=== PATIENT | male | born 1975 | race Caucasian/White ===

== ENCOUNTER 2017-01-02 21:35 | Inpatient (IN) | payer SELFPAY ==
--- NOTE | ~2017-01-02 | DS ---
Unit #: [id number] #: [id number] Patient: SANTIAGO PARKER [id number] [facility] [address] [place] [address] [id number] I MR#: [id number] NAME: SANTIAGO PARKER ROOM: [facility] Age: 41 Sex: M Admission Date: 01/02/2017 : 1975 Discharge Date: 01/06/2017 Attending Physician: Sanford Walton M.D. Primary Care Physician: Generic Doctor Not In System DISCHARGE SUMMARY REASON FOR ADMISSION Mr. Parker is a 41-year-old man with a history of alcohol dependence for much of his adult life, who was referred by the [facility] after he requested detox and establishment of sobriety. DIAGNOSTIC STUDIES LABORATORY RESULTS: Please see hospital chart. HOSPITAL COURSE Mr. Parker was admitted and placed on the alcohol detox protocol. He had an uneventful period of alcohol detox with no hallucinations, delusions, disorientation, or episodes of delirium. He participated appropriately in unit groups and activities and participated with the unit social work case manager on followup. On the date of discharge, he established sobriety and continued to contract for safety. DISCHARGE DIAGNOSES AXIS I: Alcohol dependence with withdrawal, uncomplicated, F10.230. AXIS II: No diagnosis. AXIS III: Alcohol withdrawal, resolved; history of asthma. AXIS IV: AXIS V: DISCHARGE INSTRUCTIONS The patient followup with [facility] in [place], [place]. DISCHARGE MEDICATIONS None. CONDITION AT DISCHARGE Improved. PROGNOSIS Fair to good. DIET AND ACTIVITY Per primary care doctor. Dictated by... Sanford Walton M.D. Unit #: [id number] #: [id number] Patient: SANTIAGO PARKER MRH/modl TD: 02/15/2017 20:27 JOB #: [id number] DISCHARGE SUMMARY Page 1 of 1 X Sanford Walton MD X DISCHARGE SUMMARY
--- NOTE | ~2017-01-02 | PA ---
Unit #: [id number] #: [id number] Patient: SANTIAGO PARKER [id number] [facility] [address] [place] [address] [id number] I MR#: [id number] NAME: SANTIAGO PARKER ROOM: [facility] Age: 41 Sex: M Admission Date: 01/02/2017 : 1975 Date of Assessment: 01/03/2017 Attending Physician: Sanford Walton M.D. Admitting Physician: Sanford Walton M.D. Primary Care Physician: Generic Doctor Not In System PSYCHIATRIC ASSESSMENT DATE OF SERVICE 01/03/2017. INFORMANTS Patient, reliable; [facility], reliable. CHIEF COMPLAINT Alcohol issues. HISTORY OF PRESENT ILLNESS Mr. Parker is a 41-year-old man, who reports he has been drinking since the age of 18 and says he has been dependent for many years. 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 He was free of suicidal ideation, intent, or plan and was admitted for alcohol dependence. PAST PSYCHIATRIC HISTORY The patient reports he has been at [facility] in the past for chemical dependence. He does not take psychiatric medications. FAMILY PSYCHIATRIC HISTORY None reported. SOCIAL HISTORY The patient denied any history of childhood abuse or neglect. 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 He graduated from high school in [facility], but is currently living alone. This has caused significant financial difficulty. PAST MEDICAL HISTORY Significant for asthma and swollen ankles related to a recent fall. MEDICATIONS None currently. ALLERGIES No known medication allergies. SUBSTANCE USE HISTORY As noted above. Unit #: [id number] #: [id number] Patient: SANTIAGO PARKER MENTAL STATUS EXAMINATION Santiago presented as a mildly disheveled man, who appeared his stated age. He was cooperative with the examination. His speech was spontaneous and easily understood. Musculoskeletal examination demonstrated mild psychomotor tremulousness. His mood was anxious with a congruent affect. He was alert and fully oriented. His memory and concentration were fair to good. His thought processes were goal directed with no active psychosis. He denied suicidal ideation, intent, or plan. Insight and judgment were fair. Fund of knowledge and abstraction were fair. ASSETS AND LIABILITIES The patient is familiar with local resources, has supportive family and is employable. Liabilities include difficulty maintaining and establishing sobriety. ADMITTING DIAGNOSES AXIS I: Alcohol dependence with withdrawal, uncomplicated, F10.230. AXIS II: No diagnosis. AXIS III: Alcohol withdrawal syndrome, history of asthma. AXIS IV: AXIS V: PSYCHIATRIC PLAN The patient was admitted and placed on the alcohol detox protocol. He will enroll in dual diagnosis groups and activities. A physical examination will be conducted. TREATMENT GOALS Establishment of sobriety, improvement in insight, and improvement in coping skills. DISCHARGE PLANNING Follow up with [facility] and chemical dependence treatment program of the patient's choice. ESTIMATED LENGTH OF STAY 5 days. Dictated by... Sanford Walton M.D. RED/suzanne TD: 02/15/2017 23:06 JOB #: [id number] Unit #: [id number] #: [id number] Patient: SANTIAGO PARKER PSYCHIATRIC ASSESSMENT Page 1 of 1 X Sanford Walton MD X PSYCHIATRIC ASSESSMENT
--- NOTE | ~2017-01-02 | HP ---
Unit #: [id number] #: [id number] Patient: SANTIAGO DAWN [id number] [place] [address] [id number] I MR#: [id number] NAME: SANTIAGO DAWN ROOM: [facility] Age: 41 Sex: M Admission Date: 01/02/2017 : 1975 Attending Physician: Sanford Walton M.D. Admitting Physician: Sanford Walton M.D. Primary Care Physician: Ivy Doctor Not In System HISTORY AND PHYSICAL HISTORY OF PRESENT ILLNESS Santiago is a 41 year old admitted to [facility] because of his abuse of alcohol. He is detoxing. PAST MEDICAL HISTORY 1. Long history of alcohol abuse. 2. History of spinal meningitis at 35 years old. PAST SURGICAL HISTORY Nothing reported. ALLERGIES No known drug allergies. SOCIAL HISTORY He does not smoke. Drinks at least 8 beers on a daily basis. Admits to using cocaine. FAMILY HISTORY Medically noncontributory. REVIEW OF SYSTEMS CONSTITUTIONAL: No fever or chills. HEENT: Denies any sore throat, ear pain or runny nose. CARDIOVASCULAR: Denies chest pain, irregular heart rhythm or palpitations. CHEST: Denies shortness of breath or cough. No hemoptysis. GASTROINTESTINAL: Denies nausea, vomiting, diarrhea or chronic constipation. ENDOCRINE: Denies history of increased thirst or urination. No recent significant weight loss or gain. GENITOURINARY: Denies dysuria, frequency, or hematuria. SKIN: Denies any rashes. HEMATOLOGIC: Denies history of increased bleeding or bruising. EXTREMITIES: He does report fractured right tibia approximately five weeks ago. He did not seek medical attention and has been walking on the leg. He was seen in the emergency room just prior to this admission because of his alcohol abuse and at that time he complained of leg pain. X-ray evidently showed old fracture. He was put in a walking boot and told to follow up with PCP/orthopedics. NEUROLOGIC: Denies problems with vision or speech. No frequent, severe headaches. No numbness, tingling or weakness in any extremities. Denies loss of bladder or bowel control. Unit #: [id number] #: [id number] Patient: SANTIAGO DAWN CURRENT MEDICATIONS Detox protocol. PHYSICAL EXAMINATION GENERAL: Alert, well-nourished, in no apparent distress. VITAL SIGNS: Blood pressure 114/62, heart rate 70, respirations 16, temperature 98.6. WEIGHT: 250. HEIGHT: 6 feet 6 inches. SKIN: Warm and dry without rash or lesion. HEENT: Normocephalic. TMs not viewed. Oral and nasal passages clear. Conjunctivae clear. PERRLA. EOMs intact. NECK: Supple without lymphadenopathy or thyromegaly. HEART: Regular rate and rhythm without murmur. LUNGS: Clear. ABDOMEN: Soft, nontender. : Not done. EXTREMITIES: Right lower extremity is in a walking boot. Neurovascular intact. NEUROLOGICAL: Grossly within normal limits. Cranial Nerves: II: Visual bashir are intact. III, IV AND : Extraocular movements are intact. Pupils are equal, round and reactive to light. V: Facial sensation is grossly normal. VII: Facial movements and expression are normal. VIII: Auditory acuity grossly intact. IX, X: Uvula is midline. Phonation is normal. XI: Patient shrugs shoulders and turns head normally. XII: Tongue protrudes in the midline. Sensory and Motor Function: Sensory and motor sensation is grossly normal. Motor: moves all extremities well. Coordination: Gait is normal. Deep Tendon Reflexes: Intact. IMPRESSION 1. Psychiatric admission. 2. History of alcohol abuse. 3. Patient reports fracture of his right tibia five weeks ago. He did not seek medical attention and was only put in a walking boot on 01/02/17. RECOMMENDATIONS PSYCHIATRIC: Per psychiatrist. MEDICAL: 1. See no contraindications to participate in facility's activities. 2. He knows to follow up with PCP/orthopedics concerning the fractured tibia. 3. Detox per protocol. MEDICAL PROGNOSIS Good. MEDICAL CONDITION Stable. Dictated by... Lesa Root P.A.-C. for Unit #: [id number] #: [id number] Patient: SANTIAGO DAWN Niraj Munoz/ross TD: 01/03/2017 18:21 JOB #: [id number] HISTORY AND PHYSICAL Page 1 of 1 X Lesa Root X HISTORY AND PHYSICAL
[2017-01-03 09:43] LABS: ALBUMIN SERUM 3.4 g/dL (3.5-5.0); BILIRUBIN,TOTAL 1.9 mg/dL (0.2-2.0); CALCIUM SERUM 9.1 mg/dL (8.4-10.2); CREATININE SERUM 0.5 mg/dL (0.6-1.4); GLOM FILT RATE Estimated 134.7 mL/min (>60); POTASSIUM 3.4 mmol/L (3.5-5.1); PROTEIN TOTAL SERUM 7.5 g/dL (6.0-8.3)
[2017-01-03 09:48] LABS: BASOPHIL% 0.9 % (0-2.5); EOSINOPHIL% 0.8 % (0.0-7.0); HEMATOCRIT 35.6 % (38.0-50.0); HEMOGLOBIN 11.8 gm/dL (13.0-16.0); LYMPHOCYTE# 0.8 X10e3 (1.0-3.5); LYMPHOCYTE% 24.2 % (17.0-45.0); MEAN CELL VOLUME 100.5 FL (83-96); MEAN CORPUSCULAR HEMOGLOBIN 33.2 PG (28-34); MEAN CORPUSCULAR HGB CONC 33.1 g/dL (30-36); MEAN PLATELET VOLUME 9.9 FL (6.5-11.5); MONOCYTE# 0.6 X10e3 (0-1.0); MONOCYTE% 17.7 % (3.0-12.0); NEUTROPHIL# 1.9 X10e3 (1.5-7.1); NEUTROPHIL% 56.4 % (40-75); RED BLOOD COUNT 3.55 X10e (3.90-5.60); WHITE BLOOD COUNT 3.3 X10e3 (4.0-10.5)
[2017-01-03 10:09] LABS: PLATELET COUNT 82 X10e3 (140-420)
[2017-01-03 10:10] LABS: DIFF IND YES
[2017-01-03 10:11] LABS: ANISOCYTOSIS SL; PLATELET ESTIMATE DECREASED (NORMAL)
[2017-01-04 09:45] LABS: URINE APPEARANCE CLEAR; URINE BILIRUBIN NEG (NEG); URINE BLOOD NEG (NEG); URINE COLOR DK YELLOW; URINE GLUCOSE NEG (NEG); URINE KETONE NEG (NEG); URINE LEUKOCYTE ESTERASE NEG (NEG); URINE NITRATE NEG (NEG); URINE PROTEIN NEG (NEG); URINE SPECIFIC GRAVITY 1.011 (1.003-1.035)
[2017-01-04 10:03] LABS: AMPHETAMINE NEG (NEG); BARBITURATES NEG (NEG); BENZODIAZEPINES POS (NEG); COCAINE POS (NEG); MARIJUANA NEG (NEG); OPIATES NEG (NEG); TRICYCLIC ANTIDEPRESSANTS NEG (NEG); U METHADONE NEG (NEG)
== END 2017-01-06 14:20 | disposition home or self-care (01) | DRG 897 ==
LOC: P1E 21:35
PROVIDERS: Psychiatry & Neurology Psychiatry
PROC: HZ2ZZZZ Detoxification Services for Substance Abuse Treatment (ICD-10-PCS; principal; 2017-01-02)
DX: F10.230 Alcohol dependence with withdrawal, uncomplicated (principal); J45.909 Unspecified asthma, uncomplicated
CPT/HCPCS: 80053; 80307; 81003; 85025; 86592